=== PATIENT | male | born 1985 | race Caucasian/White ===

== ENCOUNTER 2017-12-08 02:27 | Emergency (ER) | payer OTHER ==
[~2017-12-08] VITALS: Ht 175.3 cm; Wt 70.3 kg
[~2017-12-08 02:27] MED LIST: ANTIVERT25 MG PO; AUGMENTIN 875-1 EACH PO; ZOFRAN ODT4 MG PO
[2017-12-08] MEDS ORDERED: KEFLEX500 M1 PO (03:17)
[2017-12-08 03:26] VITALS: BP 114/91
== END 2017-12-08 03:27 | disposition home or self-care (01) ==
LOC: M.ERS 02:27
DX: S70.362A Insect bite (nonvenomous), left thigh, initial encounter (principal); W57.XXXA Bitten or stung by nonvenomous insect and other nonvenomous arthropods, initial encounter; Y93.89 Activity, other specified; Y92.89 Other specified places as the place of occurrence of the external cause; Y99.8 Other external cause status